=== PATIENT | female | born 2000 | race Caucasian/White ===

== ENCOUNTER → 2018-11-15 | Outpatient (CLI) | payer OTHER | LOC: COL.RAD 09:00 | DX: S43.005A Unspecified dislocation of left shoulder joint, initial encounter (principal) | CPT/HCPCS: A9585; Q9967 ==

== ENCOUNTER 2021-07-21 00:17 | Emergency (ER) | payer OTHER ==
[~2021-07-21] VITALS: Ht 165.1 cm; Wt 100.0 kg
[2021-07-21 00:31] VITALS: TEMP 98
[2021-07-21 01:05] VITALS: BP 152/93; PULSE 92
== END 2021-07-21 01:05 | disposition home or self-care (01) ==
LOC: COL.ER 00:17
DX: J95.830 Postprocedural hemorrhage of a respiratory system organ or structure following a respiratory system procedure (principal); Z90.89 Acquired absence of other organs

== ENCOUNTER 2021-07-21 05:07 | Day surgery (SDC) | payer OTHER ==
[~2021-07-21] VITALS: Ht 165.1 cm; Wt 100.0 kg
[2021-07-21 05:46] LABS: HEMATOCRIT 42.2 % (37.0-47.0); HEMOGLOBIN 13.7 g/dl (12.5-16.0); MEAN CELL VOLUME 81 fl (80.0-100.0); MEAN CORPUSCULAR HEMOGLOBIN 26 pg (27-31); MEAN CORPUSCULAR HGB CONC 33 g/dl (33.0-37.0); MEAN PLATELET VOLUME 9.8 fl (7.4-10.4); PLATELET COUNT 471 K/mm3 (130-400); RED BLOOD COUNT 5.22 M/mm3 (4.10-5.30); REDCELL DISTRIBUTION WIDTH-CV 13.6 % (11.5-14.5)
[2021-07-21 06:05] LABS: BILIRUBIN,TOTAL 0.2 mg/dL (0.2-1.2); CREATININE, serum 0.79 mg/dL (0.57-1.11); POTASSIUM 3.8 mmol/L (3.5-4.5)
[2021-07-21 07:06] LABS: BAND 2 % (0-10); EOSINOPHIL 3 % (0-4); LYMPHOCYTE 41 % (20.0-51.0); NEUTROPHILS 49 % (42.0-75.2); PLATELET ESTIMATE INCREASED (NORMAL)
[2021-07-21 08:40] VITALS: BP 134/79; PULSE 107; TEMP 98.6
--- NOTE | 2021-07-21 08:40 | NUR ---
Pt to [place] [facility], alert and oriented and O2 sats 94-95% on room air, nasal canula removed. Pt provided apple juice. Family not here yet. Call light in reach, side rails up x2. Dynamap in place.
[2021-07-21 08:55] VITALS: BP 134/72; PULSE 104
--- NOTE | 2021-07-21 08:55 | NUR ---
Pt doing well, remains awake and alert. Provided with some chicken broth. Denies other needs. VSS. Call light in reach.
[2021-07-21 09:10] VITALS: BP 129/75; PULSE 89
--- NOTE | 2021-07-21 09:15 | NUR ---
Pt with mild increase in pain and has denied nausea with broth and juice, will treat with pain medication per orders.
[2021-07-21 09:25] VITALS: BP 123/69; PULSE 98
[2021-07-21 09:55] VITALS: BP 132/70; PULSE 114
--- NOTE | 2021-07-21 10:00 | NUR ---
Pt awake and alert and doing well, reports pain mild and no nausea. VSS. Pt's stepdad is now here.
[2021-07-21 10:25] VITALS: BP 127/71; PULSE 107
--- NOTE | 2021-07-21 10:25 | NUR ---
Discharge instructions provided and IV discontinued, pt up to the bathroom and voids and gets dressed. Taken out via wheelchair at 1045 and left in care of her step-dad.
== END 2021-07-21 10:45 | disposition home or self-care (01) ==
LOC: COL.ER 05:07 → SDCO 05:07 → EDSTATUS 07:28 → SDCO 10:45
PROVIDERS: Personal Emergency Response Attendant
DX: K91.840 Postprocedural hemorrhage of a digestive system organ or structure following a digestive system procedure (principal); F41.9 Anxiety disorder, unspecified; F32.A Depression, unspecified; Z79.899 Other long term (current) drug therapy; Z83.3 Family history of diabetes mellitus
CPT/HCPCS: J0330; J1100; J1170; J2405; J2704; J3010; J7030